=== PATIENT | male | born 1995 | race Caucasian/White ===

== ENCOUNTER 2017-04-03 00:11 | Emergency (ER) | payer SELFPAY ==
[~2017-04-03] VITALS: Ht 172.7 cm; Wt 85.0 kg
[2017-04-03 01:24] VITALS: BP 141/95
== END 2017-04-03 01:25 | disposition home or self-care (01) ==
LOC: EME 00:11
DX: S00.83XA Contusion of other part of head, initial encounter (principal); S02.2XXA Fracture of nasal bones, initial encounter for closed fracture; Y04.8XXA Assault by other bodily force, initial encounter; Y92.830 Public park as the place of occurrence of the external cause; Y07.9 Unspecified perpetrator of maltreatment and neglect; Z87.891 Personal history of nicotine dependence
CPT/HCPCS: 70486; 99281; 99283

== ENCOUNTER 2018-03-23 12:57 | Emergency (ER) | payer SELFPAY ==
[~2018-03-23] VITALS: Ht 172.7 cm; Wt 79.1 kg
[2018-03-23] MEDS ORDERED: NAPROXEN500 MG PO (15:01)
[2018-03-23 15:18] VITALS: BP 123/83
== END 2018-03-23 15:22 | disposition home or self-care (01) ==
LOC: EME 12:57
PROC: 2W3CX1Z Immobilization of Right Lower Arm using Splint (ICD-10-PCS; principal; 2018-03-23)
DX: M65.4 Radial styloid tenosynovitis [de Quervain] (principal); F17.220 Nicotine dependence, chewing tobacco, uncomplicated
CPT/HCPCS: 73110; 99281; 99283